=== PATIENT | male | born 2005 | race Caucasian/White ===

== ENCOUNTER 2024-03-09 12:53 | Emergency (ER) | payer OTHER ==
[~2024-03-09] VITALS: Ht 188 cm; Wt 111.1 kg
[2024-03-09] MEDS: IBUPROFEN 600MG TAB PO ONE (14:00)
[2024-03-09 14:15] VITALS: BP 132/68; TEMP 97.1; O2SAT 99
== END 2024-03-09 14:16 | disposition home or self-care (01) ==
LOC: M ED 12:53
DX: R51.9 Headache, unspecified (principal)